=== PATIENT | female | born 1950 ===

== ENCOUNTER 2018-11-25 10:33 | Outpatient (CLI) | payer MEDICARE | END 2018-11-25 10:34 | disposition home or self-care (01) | LOC: C.MAMMO 10:33 | DX: Z12.31 Encounter for screening mammogram for malignant neoplasm of breast (principal) ==

== ENCOUNTER 2018-12-23 09:17 | Outpatient (CLI) | payer MEDICARE | END 2018-12-23 09:18 | disposition home or self-care (01) | LOC: C.MAMMO 09:17 | DX: R92.8 Other abnormal and inconclusive findings on diagnostic imaging of breast (principal) ==